=== PATIENT | male | born 1945 | race Caucasian/White ===

== ENCOUNTER 2017-05-28 19:35 | Emergency (ER) | payer MEDICARE ==
[2017-05-28 19:46] VITALS: BP 123/55
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
== END 2017-05-28 20:04 | disposition left against medical advice (07) ==
LOC: UCEAST 19:35
DX: S01.91XA Laceration without foreign body of unspecified part of head, initial encounter (principal); X58.XXXA Exposure to other specified factors, initial encounter; Y92.9 Unspecified place or not applicable; I48.91 Unspecified atrial fibrillation; Z87.442 Personal history of urinary calculi; Z79.01 Long term (current) use of anticoagulants; Z79.4 Long term (current) use of insulin
CPT/HCPCS: 99212; G0463

== ENCOUNTER 2017-05-28 20:24 | Emergency (ER) | payer MEDICARE ==
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
[2017-05-28] MEDS ORDERED: Lidocaine 2% EPI 1:200000 MPF* 20 ML VIAL ONE (22:35)
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
[2017-05-28 22:54] VITALS: BP 150/65
== END 2017-05-28 22:53 | disposition home or self-care (01) ==
LOC: ED 20:24
DX: S09.90XA Unspecified injury of head, initial encounter (principal); S01.01XA Laceration without foreign body of scalp, initial encounter; M25.511 Pain in right shoulder; V89.2XXA Person injured in unspecified motor-vehicle accident, traffic, initial encounter; Y92.9 Unspecified place or not applicable; Z79.01 Long term (current) use of anticoagulants; E07.9 Disorder of thyroid, unspecified; I48.91 Unspecified atrial fibrillation; I50.9 Heart failure, unspecified; K21.9 Gastro-esophageal reflux disease without esophagitis; I12.9 Hypertensive chronic kidney disease with stage 1 through stage 4 chronic kidney disease, or unspecified chronic kidney disease; E11.22 Type 2 diabetes mellitus with diabetic chronic kidney disease; N18.9 Chronic kidney disease, unspecified
CPT/HCPCS: 12001; 70450; 99282

== ENCOUNTER 2017-10-07 20:37 | Emergency (ER) | payer MEDICARE ==
[2017-10-07 20:46] VITALS: BP 133/58
--- NOTE | 2017-10-07 20:49 | UC ---
FLU HPI - HPI Summary HPI Summary: Pt presents with recent exposure to influenza A and several comorbidities. His was diagnosed with influenza A today and he has several health problems and is concerned that he may get the flu as well. Currently he has no symptoms and feels fine. - History of Current Complaint Hx Obtained From: Patient Severity Currently: None Pain Intensity: 0 <Anthony Butts - Last Filed: 10/08/17 17:57> <Urmila Rao - Last Filed: 10/09/17 07:09> - History of Current Complaint Chief Complaint: UCGeneralIllness Stated Complaint: FLU SYMPTOMS Time Seen by Provider: 10/07/17 20:39 - Allergy/Home Medications Allergies/Adverse Reactions: Allergies Allergy/AdvReac Type Severity Reaction Status Date / Time No Known Allergies Allergy Verified 10/07/17 20:46 Home Medications: Home Medications Torsemide TAB* [Demadex 20 MG*] 2 tab PO BID 10/07/17 [History Confirmed ] PMH/Surg Hx/FS Hx/Imm Hx Endocrine History: Diabetes, Dyslipidemia Cardiovascular History: Cardiac Disease, Hypertension, Congestive Heart Failure Other History Of: Anticoagulant Therapy - Surgical History Surgical History: Yes Surgery Procedure, Year, and Place: KIDNEY STONES 1974 - Family History Known Family History: Positive: Cardiac Disease - Social History Occupation: Retired Lives: With Family Alcohol Use: Rare Substance Use Type: None Smoking Status (MU): Never Smoked Tobacco - Immunization History Most Recent Influenza Vaccination: 2014 Most Recent Tetanus Shot: 2016 Most Recent Pneumonia Vaccination: 2011 <Anthony Butts - Last Filed: 10/08/17 17:57> Review of Systems Constitutional: Negative Skin: Negative Respiratory: Negative Cardiovascular: Negative Gastrointestinal: Negative Neurological: Negative Psychological: Negative All Other Systems Reviewed And Are Negative: Yes <Anthony Butts - Last Filed: 10/08/17 17:57> Physical Exam Triage Information Reviewed: Yes Appearance: Well-Appearing, No Pain Distress, Obese Vital Signs: Initial Vital Signs Temp 98.7 F 10/07/17 20:39 Pulse 66 10/07/17 20:39 Resp 16 10/07/17 20:39 BP 133/58 10/07/17 20:39 Pulse Ox 92 10/07/17 20:39 Vital Signs Reviewed: Yes Eyes: Positive: Conjunctiva Clear. Negative: Conjunctiva Inflamed, Discharge ENT: Positive: Hearing grossly normal, Pharynx normal, TMs normal, Uvula midline. Negative: Pharyngeal erythema, Nasal congestion, Nasal drainage, TM bulging, TM dull, TM red, Tonsillar swelling, Tonsillar exudate, Hoarse voice, Sinus tenderness Neck: Positive: Supple, Nontender, No Lymphadenopathy Respiratory: Positive: No respiratory distress, No accessory muscle use Cardiovascular: Positive: Pulses Normal Neurological: Positive: Alert Psychological: Positive: Age Appropriate Behavior Skin: Negative: rashes <Anthony Butts - Last Filed: 10/08/17 17:57> Vital Signs: Initial Vital Signs Temp 98.7 F 10/07/17 20:39 Pulse 66 10/07/17 20:39 Resp 16 10/07/17 20:39 BP 133/58 10/07/17 20:39 Pulse Ox 92 10/07/17 20:39 <Urmila Rao - Last Filed: 10/09/17 07:09> Flu Course/Dx - Course Course Of Treatment: POC flu negative, but given his recent contacts and comorbidities - will treat with tamiflu. - Differential Dx/Diagnosis Provider Diagnoses: DM2. CHF. Exposure to influenza <Anthony Butts - Last Filed: 10/08/17 17:57> Discharge <Anthony Butts - Last Filed: 10/08/17 17:57> <Urmila Rao - Last Filed: 10/09/17 07:09> - Discharge Plan Condition: Stable Disposition: HOME Prescriptions: Oseltamivir CAP* [Tamiflu CAP*] 75 mg PO DAILY #6 cap Oseltamivir CAP* [Tamiflu CAP*] 75 mg PO DAILY #3 cap Referrals: Lynn Lemus MD [Primary Care Provider] - Additional Instructions: If you develop a fever, shortness of breath, chest pain, new or worsening symptoms - please call your PCP or go to the ED. Attestation Statement User Type: Provider - I was available for consult. This patient was seen by the advanced practice provider. The patient was not presented to, seen by, or examined by me.-Joy <Urmila Rao - Last Filed: 10/09/17 07:09>
[2017-10-07] MEDS ORDERED: Oseltamivir CAP* 75 MG CAP PO ONE (21:34)
[2017-10-07] MEDS ORDERED: Oseltamivir CAP* 75 MG CAP ONE (21:35)
== END 2017-10-07 22:16 | disposition home or self-care (01) ==
LOC: UCEAST 20:37
DX: Z20.828 Contact with and (suspected) exposure to other viral communicable diseases (principal); I25.10 Atherosclerotic heart disease of native coronary artery without angina pectoris; I11.0 Hypertensive heart disease with heart failure; I50.9 Heart failure, unspecified; Z79.01 Long term (current) use of anticoagulants; E11.9 Type 2 diabetes mellitus without complications; E78.5 Hyperlipidemia, unspecified; Z87.442 Personal history of urinary calculi; E66.9 Obesity, unspecified
CPT/HCPCS: 87502; 99212; A9270-GY; G0463